=== PATIENT | female | born 1965 | race Caucasian/White ===

== ENCOUNTER → 2017-01-02 | Outpatient (CLI) | payer MEDICARE, SELFPAY ==
[~2017-01-02] MED LIST: COLACE 100MG C100 MG PO; DITROPAN XL15 MG PO; ENDOCET 5-3251 EACH PO; FLOMAX0.4 MG PO; MELOXICAM15 MG PO; NEURONTIN800 MG PO; NUVIGIL150 MG PO; THORAZINE 100100 MG PO; TIZANIDINE HCL2 MG PO
== END ==
LOC: RAD 11:18
DX: M25.562 Pain in left knee (principal)
CPT/HCPCS: 73562

== ENCOUNTER → 2017-01-09 | Outpatient (CLI) | payer MEDICARE, OTHER ==
[2017-01-09 12:37] LABS: HEMOGLOBIN 13.4 gm/dl (12.3-15.3); RED BLOOD COUNT 4.59 M/UL (4.00-5.10); WHITE BLOOD COUNT 6.7 K/UL (4.5-11.0)
[2017-01-09 13:03] LABS: BUN/CREATININE RATIO 17 (0-10)
== END ==
LOC: LAB 11:54
PROVIDERS: Family Medicine
DX: Z01.818 Encounter for other preprocedural examination (principal); Z88.0 Allergy status to penicillin
CPT/HCPCS: 36415; 80053; 85025

== ENCOUNTER → 2017-01-10 | Day surgery (SDC) | payer MEDICARE, SELFPAY ==
[~2017-01-10] VITALS: Ht 162.6 cm; Wt 94.8 kg
== END | disposition home or self-care (01) ==
LOC: OR 10:48
PROVIDERS: Podiatrist Foot & Ankle Surgery
PROC: 0J8Q0ZZ Division of Right Foot Subcutaneous Tissue and Fascia, Open Approach (ICD-10-PCS; principal; 2017-01-10 13:00)
DX: M72.2 Plantar fascial fibromatosis (principal); M06.9 Rheumatoid arthritis, unspecified; M54.12 Radiculopathy, cervical region; M19.90 Unspecified osteoarthritis, unspecified site; J45.909 Unspecified asthma, uncomplicated; G47.10 Hypersomnia, unspecified; D50.9 Iron deficiency anemia, unspecified; E55.9 Vitamin D deficiency, unspecified; M54.16 Radiculopathy, lumbar region; M32.0 Drug-induced systemic lupus erythematosus; G47.33 Obstructive sleep apnea (adult) (pediatric); N32.81 Overactive bladder; Z79.52 Long term (current) use of systemic steroids; Z90.89 Acquired absence of other organs; Z80.0 Family history of malignant neoplasm of digestive organs; Z79.899 Other long term (current) drug therapy; Z87.891 Personal history of nicotine dependence; Z79.891 Long term (current) use of opiate analgesic; Z90.710 Acquired absence of both cervix and uterus
CPT/HCPCS: J1885; J2250; J2405; J7030; J7120

== ENCOUNTER → 2017-01-15 | Outpatient (CLI) | payer MEDICARE, SELFPAY | LOC: MRI 12:51 | DX: M54.2 Cervicalgia (principal); M54.12 Radiculopathy, cervical region; M50.322 Other cervical disc degeneration at C5-C6 level; M50.323 Other cervical disc degeneration at C6-C7 level | CPT/HCPCS: 72141 ==

== ENCOUNTER → 2017-01-28 | Outpatient (CLI) | payer MEDICARE, SELFPAY | LOC: KOH-I 15:55 | DX: M25.512 Pain in left shoulder (principal); M75.102 Unspecified rotator cuff tear or rupture of left shoulder, not specified as traumatic | CPT/HCPCS: 73221 ==

== ENCOUNTER → 2017-03-07 | Outpatient (CLI) | payer MEDICARE, SELFPAY ==
[2017-03-07 08:30] LABS: HEMOGLOBIN 14.8 gm/dl (12.3-15.3); RED BLOOD COUNT 5.09 M/UL (4.00-5.10); WHITE BLOOD COUNT 5.6 K/UL (4.5-11.0)
[2017-03-07 08:46] LABS: BUN/CREATININE RATIO 14 (0-10)
== END ==
LOC: OPSV2 07:48
PROVIDERS: Orthopaedic Surgery
DX: Z01.810 Encounter for preprocedural cardiovascular examination (principal); Z01.812 Encounter for preprocedural laboratory examination; Z01.818 Encounter for other preprocedural examination; M75.102 Unspecified rotator cuff tear or rupture of left shoulder, not specified as traumatic; Z88.0 Allergy status to penicillin
CPT/HCPCS: 36415; 71020; 80048; 85025; 93005

== ENCOUNTER 2020-12-11 12:36 | Emergency (ER) | payer MEDICARE, SELFPAY ==
[2020-12-11 14:22] LABS: HEMOGLOBIN 15.1 gm/dl (12.3-15.3); RED BLOOD COUNT 5.01 M/UL (4.00-5.10); WHITE BLOOD COUNT 8.1 K/UL (4.5-11.0)
[2020-12-11 14:45] LABS: BUN/CREATININE RATIO 25 (0-10)
== END 2020-12-11 18:22 | disposition home or self-care (01) ==
LOC: ER1 12:36
PROVIDERS: Emergency Medicine
DX: R07.89 Other chest pain (principal); I10 Essential (primary) hypertension; E78.5 Hyperlipidemia, unspecified; Z88.0 Allergy status to penicillin; Z90.710 Acquired absence of both cervix and uterus
CPT/HCPCS: 36415; 71045; 80053; 82550; 82553; 83874; 84484; 85025; 93005; 96365; 99285

== ENCOUNTER → 2020-12-21 | Outpatient (CLI) | payer MEDICARE | LOC: NM 08:57 | DX: K21.9 Gastro-esophageal reflux disease without esophagitis (principal); R94.8 Abnormal results of function studies of other organs and systems; K30 Functional dyspepsia | CPT/HCPCS: 78264; A9541 ==

== ENCOUNTER → 2021-01-30 | Outpatient (CLI) | payer MEDICARE | LOC: HEART 5 08:30 | DX: I20.9 Angina pectoris, unspecified (principal); E78.5 Hyperlipidemia, unspecified; I10 Essential (primary) hypertension; I08.3 Combined rheumatic disorders of mitral, aortic and tricuspid valves; I27.20 Pulmonary hypertension, unspecified | CPT/HCPCS: 78452; 93306; A9502; J2785 ==

== ENCOUNTER → 2021-02-13 | Outpatient (CLI) | payer MEDICARE | LOC: HEART 5 09:54 | DX: I20.9 Angina pectoris, unspecified (principal); R00.2 Palpitations ==

== ENCOUNTER 2021-03-06 12:26 | Emergency (ER) | payer MEDICARE | END 2021-03-06 16:00 | LOC: ER1 12:26 | DX: K94.23 Gastrostomy malfunction (principal); I10 Essential (primary) hypertension; E78.5 Hyperlipidemia, unspecified; Z86.73 Personal history of transient ischemic attack (TIA), and cerebral infarction without residual deficits; Z88.0 Allergy status to penicillin | CPT/HCPCS: 99282 ==

== ENCOUNTER 2021-03-14 10:46 | Emergency (ER) | payer MEDICARE ==
[2021-03-14 12:15] LABS: HEMOGLOBIN 11.7 gm/dl (12.3-15.3); RED BLOOD COUNT 3.93 M/UL (4.00-5.10); WHITE BLOOD COUNT 7.7 K/UL (4.5-11.0)
[2021-03-14 12:45] LABS: BUN/CREATININE RATIO 10 (0-10)
== END 2021-03-14 15:16 | disposition short-term general hospital (02) ==
LOC: ER1 10:46
PROVIDERS: Emergency Medicine
DX: K66.8 Other specified disorders of peritoneum (principal); I10 Essential (primary) hypertension; Z87.09 Personal history of other diseases of the respiratory system; Z86.79 Personal history of other diseases of the circulatory system
CPT/HCPCS: 80053; 81001; 82550; 82553; 83605; 83690; 83874; 84484; 85025; 87040; 96374; 99284; J1335; Q9967

== ENCOUNTER → 2021-03-21 | Outpatient (CLI) | payer MEDICARE | LOC: HEART 5 12:38 | DX: I49.1 Atrial premature depolarization (principal); R42 Dizziness and giddiness; R00.2 Palpitations; R06.02 Shortness of breath ==

== ENCOUNTER → 2021-06-08 | Outpatient (CLI) | payer MEDICARE | LOC: KOH-I 13:59 | DX: M23.91 Unspecified internal derangement of right knee (principal) | CPT/HCPCS: 73721 ==

== ENCOUNTER → 2021-10-15 | Outpatient (CLI) | payer MEDICARE | LOC: MAMO 13:36 | DX: Z12.31 Encounter for screening mammogram for malignant neoplasm of breast (principal) | CPT/HCPCS: 77063; 77067 ==

== ENCOUNTER → 2021-10-16 | Outpatient (CLI) | payer MEDICARE | LOC: KOH-I 13:30 | DX: Z87.891 Personal history of nicotine dependence (principal) | CPT/HCPCS: 71271 ==

== ENCOUNTER → 2022-02-11 | Outpatient (CLI) | payer MEDICARE | LOC: EXRD 10:30 | DX: M85.80 Other specified disorders of bone density and structure, unspecified site (principal) | CPT/HCPCS: 77080 ==

== ENCOUNTER → 2022-03-13 | Outpatient (CLI) | payer MEDICARE | LOC: SLEEP 14:55 | DX: G47.33 Obstructive sleep apnea (adult) (pediatric) (principal) | CPT/HCPCS: 95811 ==

== ENCOUNTER → 2022-05-08 | Outpatient (CLI) | payer MEDICARE | LOC: HEART 5 14:16 | DX: R06.02 Shortness of breath (principal) | CPT/HCPCS: 94010 ==

== ENCOUNTER → 2022-05-20 | Outpatient (CLI) | payer MEDICARE ==
[2022-05-20 10:21] LABS: HEMOGLOBIN 12.6 gm/dl (12.3-15.3); RED BLOOD COUNT 4.13 M/UL (4.00-5.10); WHITE BLOOD COUNT 7.3 K/UL (4.5-11.0)
[2022-05-20 10:38] LABS: BUN/CREATININE RATIO 16 (0-10)
== END ==
LOC: LAB 09:37
PROVIDERS: Orthopaedic Surgery
DX: Z01.818 Encounter for other preprocedural examination (principal); G47.30 Sleep apnea, unspecified; J45.909 Unspecified asthma, uncomplicated; E78.00 Pure hypercholesterolemia, unspecified
CPT/HCPCS: 36415; 71046; 80053; 85025; 93005